=== PATIENT | male | born 1955 | race Caucasian/White ===

== ENCOUNTER 2017-05-10 12:46 | Inpatient (IN) | payer OTHER ==
--- NOTE | 2017-05-10 12:55 | PN ---
[facility] Progress Note Note: pt is intoxicated and unsafe to be unsupervised. pt is currently incoherent and will require to go to [place] ED for further eval and or treatment. Report given to Dr. Cerda.
[2017-05-10 20:52] VITALS: BMI 28.8
--- NOTE | 2017-05-10 21:23 | HP ---
CIWA Score - CIWA Score Nausea/Vomitin (vomiting x 1) Muscle Tremors: 4-Moderate,w/Arms Extend Anxiety: 4-Mod. Anxious/Guarded Agitation: 4-Moderately Restless Paroxysmal Sweats: 4-Forehead w/Sweat Beads Orientation: 2-Disoriented Date<2 days Tacttile Disturbances: 1-Very Mild Itch/Numbness Auditory Disturbances: 0-None Visual Disturbances: 0-None Headache: 4-Moderately Severe CIWA-Ar Total Score: 25 Admission ROS S - HPI Chief Complaint: Alcohol withdrawal symptoms Allergies/Adverse Reactions: Allergies Allergy/AdvReac Type Severity Reaction Status Date / Time Penicillins Allergy Verified 05/10/17 13:35 History of Present Illness: 61 years old male with a long history of alcohol dependency is admitted for detox. Patient reports previous detox and denies significant period of sobriety. Patient has history of HTN, Hep B, back pain, seizures, BPH, GERD and depression. Patient states, "I need to stop drinking." Exam Limitations: Intoxication - Ebola screening Have you traveled outside of the country in the last 21 days: No Have you had contact with anyone from an Ebola affected area: No Have you been sick,other than usual withdrawal symptoms: No Do you have a fever: No - Review of Systems Constitutional: Chills, Loss of Appetite, Malaise, Night Sweats, Changes in sleep, Weakness EENT: reports: Tearing, Nose Congestion, Sinus Pressure, Other (upper dentures) Cardiac: reports: No Symptoms Reported GI: reports: Poor Appetite, Poor Fluid Intake, Vomiting, Abdominal cramping : reports: No Symptoms Reported Musculoskeletal: reports: Back Pain, Muscle Pain, Muscle Weakness, Neck Pain Integumentary: reports: Flushing Neuro: reports: Headache, Seizure, Tingling, Tremors Endocrine: reports: Flushing Hematology: reports: No Symptoms Reported Psychiatric: reports: Orientated x3, Agitated, Anxious, Depressed Other Systems: Reviewed and Negative Patient History - Patient Medical History Hx Anemia: No Hx Asthma: No Hx Chronic Obstructive Pulmonary Disease (COPD): No Hx Cancer: No Hx Cardiac Disorders: No Hx Congestive Heart Failure: No Hx Hypertension: Yes Hx Hypercholesterolemia: No HX Cerebrovascular Accident: No Hx Seizures: Yes Hx Diabetes: No Hx Gastrointestinal Disorders: Yes (GERD) Hx Genitourinary Disorders: Yes (BPH) Hx Sexually Transmitted Disorders: No Hx Renal Disease (ESRD): No Hx Thyroid Disease: No Hx Human Immunodeficiency Virus (HIV): No Hx Hepatitis C: No Hx Depression: Yes Hx Suicide Attempt: No (Denies suicidal ideation) Hx Bipolar Disorder: Yes Hx Schizophrenia: No Other Medical History: HEPATITIS B - Patient Surgical History Past Surgical History: Yes Hx Neurologic Surgery: No Hx Cataract Extraction: No Hx Cardiac Surgery: No Hx Lung Surgery: No Hx Abdominal Surgery: No Hx Appendectomy: No Hx Cholecystectomy: Yes (2016) Hx Genitourinary Surgery: No Hx Orthopedic Surgery: Yes (C4-C6) Anesthesia Reaction: No - PPD History Previous Implant?: Yes Documented Results: Negative w/o proof PPD to be Administered?: Yes - Reproductive History Patient is a Female of Child Bearing Age (11 -55 yrs old): No (MALE) - Smoking Cessation Smoking history: Current every day smoker Have you smoked in the past 12 months: Yes Aproximately how many cigarettes per day: 10 Hx Chewing Tobacco Use: No Initiated information on smoking cessation: Yes 'Breaking Loose' booklet given: 05/10/17 - Substance & Tx. History Hx Alcohol Use: Yes (BEER, VODKA) Substance Use Type: Alcohol, Prescribed Hx Substance Use Treatment: No - Substances Abused Alcohol Route: Oral Frequency: Daily Amount used: LIQUOR- 3 PINTS, BEER- 2 SIX PACK Age of first use: 11 Date of Last Use: 05/10/17 Family Disease History - Family Disease History Family Disease History: CA: Mother (HODGKINS LYMPHOMA, ) Admission Physical Exam BHS - Vital Signs Vital Signs: Vital Signs - 24 hr 05/10/17 05/10/17 13:06 20:43 Temperature 96.3 F L 96.3 F L Pulse Rate 98 H 98 H Respiratory 20 20 Rate Blood Pressure 116/79 116/79 - Physical General Appearance: Yes: Moderate Distress, Intoxicated HEENTM: Yes: EOMI, Normal Voice, JACKY Respiratory: Yes: Lungs Clear, Normal Breath Sounds, No Respiratory Distress Neck: Yes: Supple Breast: Yes: Breast Exam Deferred Cardiology: Yes: Regular Rhythm, Regular Rate, S1, S2 Abdominal: Yes: Protuberent Back: Yes: Muscle Spasm Musculoskeletal: Yes: Back pain, Muscle Pain, Muscle weakness Extremities: Yes: Tremors, Other (bruises to bilateral hands) Neurological: Yes: Fully Oriented, Alert, Normal Response Integumentary: Yes: Dry Lymphatic: Yes: Within Normal Limits - Diagnostic (1) Alcohol dependence with uncomplicated withdrawal Current Visit: Yes Status: Acute (2) Seizure Current Visit: No Status: Chronic (3) HTN (hypertension) Current Visit: Yes Status: Chronic (4) Hepatitis B Current Visit: Yes Status: Chronic (5) BPH (benign prostatic hyperplasia) Current Visit: Yes Status: Chronic BHS Breath Alcohol Content Breath Alcohol Content: 0.199 Urine Drug Screen - Results Drug Screen Negative: No Urine Drug Screen Results: THC-Marijuana, BZO-Benzodiazepines
[2017-05-10] MEDS ORDERED: MENTHOL/PHENOL 1 EACH UD MM PRN (22:52)
[2017-05-10] MEDS ORDERED: guaiFENesin/D-METHORPHAN HB 10 ML UNIT-DOSE CUPS PO PRN (22:52)
[2017-05-10] MEDS ORDERED: MAGNESIUM CITRATE 300 ML BOTTLE PO PRN (22:52)
[2017-05-10] MEDS ORDERED: MAGNESIUM HYDROX 2400MG/30ML ORAL SUSPENSION 30 ML CUP PO PRN (22:52)
[2017-05-10] MEDS ORDERED: LOPERAMIDE HCL 2 MG CAPSULE PO PRN (22:52)
[2017-05-10] MEDS ORDERED: MAG HYDROX/AL HYDROX/SIMETH 30 ML UNIT-DOSE CUP PO PRN (22:52)
[2017-05-10] MEDS ORDERED: P-EPHED 60MG/TRIPROLIDI 2.5MG TABLET PO PRN (22:52)
[2017-05-10] MEDS ORDERED: NICOTINE POLACRILEX 2 MG GUM BC PRN (22:52)
[2017-05-10] MEDS: chlordiazePOXIDE HCL 25 MG CAPSULE PO SCH (23:27)
[2017-05-11] MEDS: IBUPROFEN 400 MG TABLET (FP) PO PRN ×3 (00:15→17:07)
[2017-05-11] MEDS: hydrOXYzine PAMOATE 50 MG CAPSULE (FP) PO PRN ×3 (01:28→19:29)
[2017-05-11] MEDS: chlordiazePOXIDE HCL 25 MG CAPSULE PO PRN ×2 (02:10→09:00)
[2017-05-11] MEDS: chlordiazePOXIDE HCL 25 MG CAPSULE PO SCH ×4 (06:09→22:35)
[2017-05-11] MEDS: TAMSULOSIN HCL 0.4 MG CAP.ER.24H (FP) PO SCH (09:35)
[2017-05-11] MEDS: SENNOSIDES 8.6MG TABLET (FP) PO SCH ×2 (09:36→22:35)
[2017-05-11] MEDS: PRENATAL VITAMINS W/ FOLIC ACID TABLET (FP) PO SCH (09:36)
[2017-05-11 09:45] LABS: URINE APPEARANCE CLOUDY; URINE BILIRUBIN NEGATIVE (NEGATIVE); URINE BLOOD NEGATIVE (NEGATIVE); URINE COLOR LTYELLOW; URINE GLUCOSE (UA) NEGATIVE (NEGATIVE); URINE KETONE NEGATIVE (NEGATIVE); URINE NITRITE NEGATIVE (NEGATIVE); URINE PROTEIN NEGATIVE (NEGATIVE); URINE UROBILINOGEN NEGATIVE mg/dL (0.2-1.0)
[2017-05-11 09:51] LABS: MCH 30.2 pg (25.7-33.7); MCHC 33.2 g/dl (32.0-35.9); PLATELET COUNT 197 K/MM3 (134-434); RDW 15.9 % (11.9-15.9); WHITE BLOOD COUNT 6.7 K/mm3 (4.0-10.0)
--- NOTE | 2017-05-11 09:57 | PN ---
S CIWA - CIWA Score Nausea/Vomitin Muscle Tremors: 3 Anxiety: 3 Agitation: 2 Paroxysmal Sweats: 1-Minimal Palms Moist Orientation: 0-Oriented Tacttile Disturbances: 1-Very Mild Itch/Numbness Auditory Disturbances: 1-Very Mild Visual Disturbances: 0-None Headache: 2-Mild CIWA-Ar Total Score: 16 BHS Progress Note (SOAP) Subjective: alert,irritable,anxious,interrupted sleep,tremor,pain in the body Objective: 05/11/17 09:54 Vital Signs Temperature 97.7 F 05/11/17 06:00 Pulse Rate 80 05/11/17 06:00 Respiratory Rate 18 05/11/17 06:00 Blood Pressure 133/77 05/11/17 06:00 O2 Sat by Pulse Oximetry (%) ekg nsr no chest pain,no sob,no dizziness Laboratory Last Values WBC 6.7 K/mm3 (4.0-10.0) 05/11/17 07:35 RBC 3.65 M/mm3 (4.00-5.60) L 05/11/17 07:35 Hgb 11.0 GM/dL (11.7-16.9) L D 05/11/17 07:35 Hct 33.2 % (35.4-49) L 05/11/17 07:35 MCV 91.0 fl (80-96) 05/11/17 07:35 MCH 30.2 pg (25.7-33.7) 05/11/17 07:35 MCHC 33.2 g/dl (32.0-35.9) 05/11/17 07:35 RDW 15.9 % (11.9-15.9) 05/11/17 07:35 Plt Count 197 K/MM3 (134-434) D 05/11/17 07:35 MPV 7.0 fl (7.5-11.1) L 05/11/17 07:35 labs pending Assessment: 05/11/17 09:56 withdrawal symptom Plan: continue detox,psychiatric evaluation for anxiety,depression,bipolar disorder
[2017-05-11] MEDS ORDERED: ASPIRIN 81 MG CHEWABLE TABLETS PO SCH (10:00)
[2017-05-11] MEDS: NICOTINE 14 MG/24 HOURS TOPICAL PATCH TD SCH (10:23)
[2017-05-11 11:06] LABS: ALBUMIN 3.2 g/dl (3.4-5.0); ANION GAP 12 (8-16); BILIRUBIN,TOTAL 0.5 mg/dL (0.2-1.0); CALCIUM 7.7 mg/dL (8.5-10.1); CO2 23 mmol/L (21-32); CREATININE 0.9 mg/dL (0.7-1.3); GLUCOSE,RANDOM 94 mg/dL (74-106); SGOT/AST 28 U/L (15-37); SGPT/ALT 36 U/L (12-78); TOT PROT 6.2 g/dl (6.4-8.2)
[2017-05-11 11:07] LABS: ALK PHOS 62 U/L (45-117)
[2017-05-11] MEDS ORDERED: traZODone HCL 50 MG TABLET (FP) PO SCH (11:45)
--- NOTE | 2017-05-11 13:41 | CONSULT ---
[facility] Psychiatric Consult - Data Date of interview: 05/11/17 Admission source: [facility] Identifying data: First admission to [facility] for this 61 y/o male seeking detox treatment on for alcohol dependence.Patient is single without children,domiciled,unemployed and supported on Social Security benefits. Substance Abuse History: Discussed with patient.Mr Collins akjustinwledges active use of alcohol as described in this [facility] report. Smoking history: Current every day smoker. Have you smoked in the past 12 months: Yes. Aproximately how many cigarettes per day: 10. Hx Chewing Tobacco Use: No. Initiated information on smoking cessation: Yes. 'Breaking Loose' booklet given: 05/10/17. - Substance & Tx. History. Hx Alcohol Use: Yes (BEER, VODKA). Substance Use Type: Alcohol , Prescribed. Hx Substance Use Treatment: No. - Substances Abused. Alcohol. Route: Oral. Frequency: Daily. Amount used: LIQUOR- 3 PINTS, BEER- 2 SIX PACK. Age of first use: 11. Date of Last Use: 05/10/17 Medical History: GERD,benign prostatic hypoplasia and hypertension. Psychiatric History: Patient reports a distant history of psychiatric hospitalizations at the [facility] in [facility].Diagnosed with MDD ,Bipolar Disorder and Anxiety Disorder.Mr Collins indicates that he is maintained on trileptal,gabapentin,klonopin and ambien.Doses not recalled.Patient is also reporting non-adherence to his medications (with the exception of clonazepam).He mentions [facility] as his most recent site of OPD care.According to self-report,outpatient treatment was initially provided at the [facility] clinic but,for a question of convenience,the patient chose [facility] (located closer to his place of residence).Denies history of suicide attempts. Physical/Sexual Abuse/Trauma History: Patient denies history of abuse. Additional Comment: Urine Drug Screen Results: THC-Marijuana, BZO- Benzodiazepines.Noted. Mental Status Exam - Mental Status Exam Alert and Oriented to: Time, Place, Person Cognitive Function: Good Patient Appearance: Well Groomed Mood: Nervous, Anxious, Apprehensive Affect: Mood Congruent, Labile Patient Behavior: Restless, Fatigued, Cooperative Speech Pattern: Clear, Perseverating Voice Loudness: Normal Thought Process: Disorganized Hallucinations: Denies Suicidal Ideation: Denies Homicidal Ideation: Denies Insight/Judgement: Poor Sleep: Poorly, Difficulty falling asleep Appetite: Good Muscle strength/Tone: Normal Gait/Station: Normal Psychiatric Findings - Problem List (Gamaliel 1, 2,3) (1) Alcohol dependence with uncomplicated withdrawal Current Visit: Yes Status: Acute (2) Cannabis abuse Current Visit: Yes Status: Acute (3) Nicotine dependence Current Visit: Yes Status: Acute (4) Bipolar disorder Current Visit: Yes Status: Acute Qualifiers: Active/Remission status: remission status unspecified Qualified Code(s): F31.9 - Bipolar disorder, unspecified Comment: As per self-report.On medications.Non compliant. (5) Insomnia Current Visit: Yes Status: Acute - Initial Treatment Plan Initial Treatment Plan: Psychoeducation.Detoxification.Sleep hygiene.Contact established with [facility] at [phone] : refills for trazodone 100 mg/ hs are dated 04/06/17 + gabapentin 100 mg po tid (issued on 04/2017) but trileptal has not been renewed since 01/2017.Will resume gabapentin 100 mg po tid + trazodone 50 mg po hs.Side effects/benefits of these two molecules are discussed with patient.Informed,in particular,of risk of priapism.Mr Collins agrees to follow this careplan.Observation.
[2017-05-11] MEDS: GABAPENTIN 100 MG CAPSULE (FP) PO SCH ×2 (14:06→22:35)
[2017-05-11 18:12] LABS: URINE LEUK ESTERASE 3+ (NEGATIVE)
[2017-05-11 19:19] LABS: URINE BACTERIA MODERATE /hpf (NEGATIVE); URINE WBC >100 (0-2)
[2017-05-11] MEDS: ACETAMINOPHEN 325 MG TABLET (FP) PO PRN (19:29)
[2017-05-11] MEDS ORDERED: BACLOFEN 10 MG TABLET (FP) PO ONE (19:44)
--- NOTE | 2017-05-11 19:45 | PN ---
S Progress Note Note: received nurse call that the patient has back muscle spasm baclofen 10 mg x 1, patient requests motrin 800 mg for pain discontinue aspirin begin motrin 800 mg po bid prn
[2017-05-11] MEDS: THIAMINE HCL 100 MG TABLET (FP) PO SCH (22:34)
[2017-05-11] MEDS: traZODone HCL 50 MG TABLET (FP) PO SCH (22:35)
[2017-05-12] MEDS: hydrOXYzine PAMOATE 50 MG CAPSULE (FP) PO PRN (01:19)
[2017-05-12] MEDS: chlordiazePOXIDE HCL 25 MG CAPSULE PO SCH ×3 (06:05→17:37)
[2017-05-12] MEDS: GABAPENTIN 100 MG CAPSULE (FP) PO SCH ×3 (07:08→22:18)
[2017-05-12] MEDS: IBUPROFEN 400 MG TABLET (FP) PO PRN (08:58)
[2017-05-12] MEDS: TAMSULOSIN HCL 0.4 MG CAP.ER.24H (FP) PO SCH (09:00)
[2017-05-12] MEDS: PRENATAL VITAMINS W/ FOLIC ACID TABLET (FP) PO SCH (10:32)
[2017-05-12] MEDS: SENNOSIDES 8.6MG TABLET (FP) PO SCH ×3 (10:33→22:48)
--- NOTE | 2017-05-12 11:11 | PN ---
S CIWA - CIWA Score Nausea/Vomitin Muscle Tremors: 3 Anxiety: 3 Agitation: 3 Paroxysmal Sweats: 1-Minimal Palms Moist Orientation: 0-Oriented Tacttile Disturbances: 1-Very Mild Itch/Numbness Auditory Disturbances: 1-Very Mild Visual Disturbances: 1-Very Mild Sensitivity Headache: 2-Mild CIWA-Ar Total Score: 18 BHS Progress Note (SOAP) Subjective: alert,irritable,anxious,interrupted sleep,pain in the body Objective: 05/12/17 11:08 Vital Signs Temperature 97.1 F L 05/12/17 06:17 Pulse Rate 74 05/12/17 06:17 Respiratory Rate 18 05/12/17 06:17 Blood Pressure 132/73 05/12/17 06:17 O2 Sat by Pulse Oximetry (%) Laboratory Last Values WBC 6.7 K/mm3 (4.0-10.0) 05/11/17 07:35 RBC 3.65 M/mm3 (4.00-5.60) L 05/11/17 07:35 Hgb 11.0 GM/dL (11.7-16.9) L D 05/11/17 07:35 Hct 33.2 % (35.4-49) L 05/11/17 07:35 MCV 91.0 fl (80-96) 05/11/17 07:35 MCH 30.2 pg (25.7-33.7) 05/11/17 07:35 MCHC 33.2 g/dl (32.0-35.9) 05/11/17 07:35 RDW 15.9 % (11.9-15.9) 05/11/17 07:35 Plt Count 197 K/MM3 (134-434) D 05/11/17 07:35 MPV 7.0 fl (7.5-11.1) L 05/11/17 07:35 Sodium 140 mmol/L (136-145) 05/11/17 07:35 Potassium 3.6 mmol/L (3.5-5.1) 05/11/17 07:35 Chloride 105 mmol/L (98-107) 05/11/17 07:35 Carbon Dioxide 23 mmol/L (21-32) 05/11/17 07:35 Anion Gap 12 (8-16) 05/11/17 07:35 BUN 19 mg/dL (7-18) H 05/11/17 07:35 Creatinine 0.9 mg/dL (0.7-1.3) 05/11/17 07:35 Creat Clearance w eGFR > 60 (>60) 05/11/17 07:35 Random Glucose 94 mg/dL (74-106) 05/11/17 07:35 Calcium 7.7 mg/dL (8.5-10.1) L 05/11/17 07:35 Total Bilirubin 0.5 mg/dL (0.2-1.0) D 05/11/17 07:35 AST 28 U/L (15-37) 05/11/17 07:35 ALT 36 U/L (12-78) 05/11/17 07:35 Alkaline Phosphatase 62 U/L (45-117) 05/11/17 07:35 Total Protein 6.2 g/dl (6.4-8.2) L 05/11/17 07:35 Albumin 3.2 g/dl (3.4-5.0) L 05/11/17 07:35 Urine Color Ltyellow 05/11/17 07:35 Urine Appearance Cloudy 05/11/17 07:35 Urine pH 6.0 (5.0-8.0) 05/11/17 07:35 Ur Specific Jackson 1.011 (1.001-1.035) 05/11/17 07:35 Urine Protein Negative (NEGATIVE) 05/11/17 07:35 Urine Glucose (UA) Negative (NEGATIVE) 05/11/17 07:35 Urine Ketones Negative (NEGATIVE) 05/11/17 07:35 Urine Blood Negative (NEGATIVE) 05/11/17 07:35 Urine Nitrite Negative (NEGATIVE) 05/11/17 07:35 Urine Bilirubin Negative (NEGATIVE) 05/11/17 07:35 Urine Urobilinogen Negative mg/dL (0.2-1.0) 05/11/17 07:35 Ur Leukocyte Esterase 3+ (NEGATIVE) H 05/11/17 07:35 Urine RBC 2-5 /hpf (0-3) 05/11/17 07:35 Urine WBC >100 (0-2) 05/11/17 07:35 Urine Bacteria Moderate /hpf (NEGATIVE) 05/11/17 07:35 RPR Titer Nonreactive (NONREACTIVE) 05/11/17 07:35 Assessment: 05/12/17 11:09 withdrawal symptom Plan: continue detox,urine for c/s r/o uti,bactrim ds 1 tab po bid,encourage oral fluid
[2017-05-12] MEDS: ACETAMINOPHEN 325 MG TABLET (FP) PO PRN ×2 (12:19→19:49)
[2017-05-12] MEDS: SULFAMETHOXAZOLE/TRIMETHOPRIM 800MG/160MG D.S. TABLET PO SCH ×2 (12:22→22:18)
[2017-05-12] MEDS: NICOTINE 14 MG/24 HOURS TOPICAL PATCH TD SCH (12:24)
[2017-05-12] MEDS: LIDOCAINE 5% TOPICAL PATCH TP SCH (12:43)
--- NOTE | 2017-05-12 16:46 | EKG ---
Test Reason : Blood Pressure : / mmHG Vent. Rate : 095 BPM Atrial Rate : 095 BPM P-R Int : 122 ms QRS Dur : 108 ms QT Int : 344 ms P-R-T Axes : 054 045 048 degrees QTc Int : 432 ms NORMAL SINUS RHYTHM INCOMPLETE RIGHT BUNDLE BRANCH BLOCK ABNORMAL ECG WHEN COMPARED WITH ECG OF 10-MAY-2017 15:36, NO MAJOR CHANGES SEEN. Confirmed by KELLEY KRUSE MD ([id number]) on 05/12/2017 4:45:42 PM Referred By: RINKU SILVERMAN Confirmed By:KELLEY KRUSE MD
[2017-05-12] MEDS: traZODone HCL 50 MG TABLET (FP) PO SCH (22:18)
[2017-05-12] MEDS: chlordiazePOXIDE 5 MG CAPSULE PO SCH (22:18)
[2017-05-12] MEDS: THIAMINE HCL 100 MG TABLET (FP) PO SCH (22:18)
[2017-05-12] MEDS: LIDOCAINE PATCH REMOVAL MC SCH (22:47)
[2017-05-13] MEDS: chlordiazePOXIDE HCL 25 MG CAPSULE PO PRN (01:04)
[2017-05-13] MEDS: GABAPENTIN 100 MG CAPSULE (FP) PO SCH ×3 (05:18→22:12)
[2017-05-13] MEDS: chlordiazePOXIDE 5 MG CAPSULE PO SCH ×3 (05:18→17:40)
--- NOTE | 2017-05-13 09:52 | PN ---
S Progress Note (SOAP) Subjective: alert,irritable,anxious,interrupted sleep,pain in the body and back Objective: 05/13/17 09:50 Vital Signs Temperature 96.2 F L 05/13/17 06:03 Pulse Rate 75 05/13/17 06:03 Respiratory Rate 18 05/13/17 06:03 Blood Pressure 144/90 05/13/17 06:03 O2 Sat by Pulse Oximetry (%) Assessment: 05/13/17 09:51 withdrawal symptom Plan: continue detox,urine for c/s pending,discharge in am
[2017-05-13] MEDS: NICOTINE 14 MG/24 HOURS TOPICAL PATCH TD SCH (10:32)
[2017-05-13] MEDS: PRENATAL VITAMINS W/ FOLIC ACID TABLET (FP) PO SCH (10:32)
[2017-05-13] MEDS: SULFAMETHOXAZOLE/TRIMETHOPRIM 800MG/160MG D.S. TABLET PO SCH ×2 (10:32→22:12)
[2017-05-13] MEDS: SENNOSIDES 8.6MG TABLET (FP) PO SCH ×2 (10:33→23:05)
[2017-05-13] MEDS: TAMSULOSIN HCL 0.4 MG CAP.ER.24H (FP) PO SCH (10:34)
[2017-05-13] MEDS: LIDOCAINE 5% TOPICAL PATCH TP SCH (10:34)
[2017-05-13] MEDS: IBUPROFEN 400 MG TABLET (FP) PO PRN (12:40)
[2017-05-13] MEDS: ACETAMINOPHEN 325 MG TABLET (FP) PO PRN (15:40)
[2017-05-13] MEDS: THIAMINE HCL 100 MG TABLET (FP) PO SCH (22:12)
[2017-05-13] MEDS: chlordiazePOXIDE HCL 10 MG CAPSULE PO SCH (22:12)
[2017-05-13] MEDS: traZODone HCL 50 MG TABLET (FP) PO SCH (22:12)
[2017-05-13] MEDS: LIDOCAINE PATCH REMOVAL MC SCH (23:04)
[2017-05-14] MEDS: GABAPENTIN 100 MG CAPSULE (FP) PO SCH (05:22)
[2017-05-14] MEDS: chlordiazePOXIDE HCL 10 MG CAPSULE PO SCH ×2 (05:22→10:24)
--- NOTE | 2017-05-14 08:17 | DS ---
[facility] Detox Discharge Summary Admission Date: 05/10/17 Discharge Date: 05/14/17 - History Present History: Alcohol Dependence Additional Comments: follow up with after care program as arrangement Pertinent Past History: seizure hypertension hepatitis b bph bipolar disorder - Physical Exam Results Vital Signs: Vital Signs Temperature 96.6 F L 05/14/17 06:03 Pulse Rate 84 05/14/17 06:03 Respiratory Rate 18 05/14/17 06:03 Blood Pressure 145/90 05/14/17 06:03 O2 Sat by Pulse Oximetry (%) Pertinent Admission Physical Exam Findings: withdrawal finding - Treatment Hospital Course: Detox Protocol Followed, Detoxed Safely, Responded well, Discharged Condition Good Patient has Accepted a Rehab Referral to: declined - Medication Discharge Medications: Ambulatory Orders Aspirin [ASA -] 81 mg PO DAILY 05/10/17 Clonazepam [Klonopin -] 1 mg PO TID 05/10/17 Gabapentin [Neurontin -] 100 mg PO TID 05/10/17 Ketorolac Tromethamine [Toradol] 10 mg PO TID 05/10/17 Oxcarbazepine [Trileptal -] 300 mg PO BID 05/10/17 Oxcarbazepine [Trileptal -] 300 mg PO BID 05/10/17 Sennosides [Senna -] 1 tab PO BID 05/10/17 Tamsulosin HCl [Flomax] 0.4 mg PO DAILY 05/10/17 Trazodone HCl [Desyrel -] 100 mg PO HS 05/10/17 Gabapentin [Neurontin -] 100 mg PO TID #60 capsule 05/11/17 Trazodone HCl 50 mg PO HS #30 tablet 05/11/17 - Diagnosis (1) Alcohol dependence with uncomplicated withdrawal Current Visit: Yes Status: Acute (2) UTI (urinary tract infection) Current Visit: Yes Status: Acute (3) Bipolar disorder Current Visit: Yes Status: Acute Qualifiers: Active/Remission status: remission status unspecified Qualified Code(s): F31.9 - Bipolar disorder, unspecified (4) Nicotine dependence Current Visit: Yes Status: Acute (5) BPH (benign prostatic hyperplasia) Current Visit: Yes Status: Chronic (6) HTN (hypertension) Current Visit: Yes Status: Chronic (7) Hepatitis B Current Visit: Yes Status: Chronic (8) Seizure Current Visit: No Status: Chronic - AMA Did Patient Leave Against Medical Advice: No
[2017-05-14 09:37] VITALS: BP 148/82; PULSE 83; TEMP 97.9
[2017-05-14] MEDS: PRENATAL VITAMINS W/ FOLIC ACID TABLET (FP) PO SCH (10:23)
[2017-05-14] MEDS: TAMSULOSIN HCL 0.4 MG CAP.ER.24H (FP) PO SCH (10:23)
[2017-05-14] MEDS: SULFAMETHOXAZOLE/TRIMETHOPRIM 800MG/160MG D.S. TABLET PO SCH (10:23)
[2017-05-14] MEDS: LIDOCAINE 5% TOPICAL PATCH TP SCH (10:24)
[2017-05-14] MEDS: NICOTINE 14 MG/24 HOURS TOPICAL PATCH TD SCH (10:24)
[2017-05-14] MEDS: SENNOSIDES 8.6MG TABLET (FP) PO SCH (10:25)
== END 2017-05-14 11:23 | disposition home or self-care (01) | DRG 775 ==
LOC: YASAS 12:46 → Y6N 21:25
PROVIDERS: ADMIT Internal Medicine; ATTEND Internal Medicine
PROC: HZ2ZZZZ Detoxification Services for Substance Abuse Treatment (ICD-10-PCS; principal; 2017-05-10)
DX: F10.230 Alcohol dependence with withdrawal, uncomplicated (principal); F17.210 Nicotine dependence, cigarettes, uncomplicated; F31.9 Bipolar disorder, unspecified; N39.0 Urinary tract infection, site not specified; N40.0 Benign prostatic hyperplasia without lower urinary tract symptoms; I10 Essential (primary) hypertension; B18.1 Chronic viral hepatitis B without delta-agent; K21.9 Gastro-esophageal reflux disease without esophagitis; G40.909 Epilepsy, unspecified, not intractable, without status epilepticus; Z79.82 Long term (current) use of aspirin; Z88.0 Allergy status to penicillin
CPT/HCPCS: 36415; 80053; 81003; 81015; 85027; 86593; 87086; 87186; 93005; 93010; J0475